=== PATIENT | male | born 1995 | race Caucasian/White ===

== ENCOUNTER → 2023-03-01 13:02 | Outpatient (REF) | payer OTHER, SELFPAY ==
--- NOTE | 2023-03-01 13:08 | CA_ITS ---
Transthoracic Echocardiogram Patient (Last, First, Middle): Art Woodward, Gender: Male Date of : 1995 Age: 28 Procedure Date: 03/01/2023 Procedure Type: Transthoracic Echocardiogram Location: [facility] Height: 193.04 cm Weight: 111.13 kg BSA: 2.42 m2 Heart Rate: 71 bpm BP: 100 / 60 mmHg Client Technologies Analyst: [email or web address] Drew MD: Junior Gilmore MD Combatant Swimmer: Julien Otero MD Symptoms: SYNCOPE COLLAPSE R55 Study Quality: Technically Difficult ECG Rhythm: Sinus Conclusions: - 1. Technically limited study due to body habitus 2. Low normal LV ejection fraction 50-55% with normal filling pattern 3. Limited visualization of cardiac valve with normal cardiac valvular Doppler Findings Left Ventricle The left ventricle was not well visualized. Normal left ventricular cavity size. There is normal left ventricular wall thickness. The left ventricular systolic function is low normal. The visually estimated ejection fraction is between 50-55%. Regional wall motion abnormalities can not be excluded due to suboptimal endocardial definition. Spectral Doppler is indicative of a normal filling pattern. Right Ventricle The right ventricle was not well visualized. Atria The left atrium is normal in size. Interatrial shunt cannot be excluded. The right atrium was not well visualized. Aortic Valve The aortic valve was not well visualized. There is no aortic valve stenosis. There is no aortic valve regurgitation. Mitral Valve Likely normal mitral valve structure and function. There is no mitral valve regurgitation. There is no mitral valve stenosis. Pulmonic Valve The pulmonic valve was not well visualized. Tricuspid Valve The tricuspid valve was not well visualized. Tricuspid regurgitation envelope is inadequate for calculation of right ventricular systolic pressure. Great Vessels All visible segments of the aorta are normal in size. The pulmonary artery was not well visualized. Venous The inferior vena cava is normal in size and collapses greater than 50% with inspiration. Pericardium/Pleural The pericardium was not well visualized. Prior Study Comparison No prior study available for comparison. Recommendations, Care & Conclusions Recommend contrast in the future to improve endocardial definition. Measurements 2D Linear Measurements IVSd: 0.76 0.6-0.9/0.6-1.0 cm LVIDd: 3.91 3.9-5.3/4.2-5.9 cm LVIDd Index: 1.62 2.4-3.2/2.2-3.1 cm/m2 LVIDs: 2.75 2.0-3.6 cm LVPWd: 0.77 0.7-1.1 cm LA Diam: 3.10 2.7-3.8/3.0-4.0 cm LAIDs Index: 1.28 1.5-2.3 cm/m2 LV Mass: 105.54 67-162/88-224 g LV Mass Index: 43.61 43-95/49-115 g/m2 LVOT Diam: 2.50 3.0+(-)1.3 cm 2D Systolic Function EF 4C: 48.90 >55% Mitral Valve MV Pk E: 0.46 MV PK A: 0.36 MV Decel Time: 268.00 E/A: 1.30 E'Lateral: 10.60 E'Medial: 6.31 E/E' Med: 7.30 E/E' Lat: 4.30 PHT: 78.00 MVA PHT: 2.82 Decel Coffey: 1.72 Aortic Valve AoV Pk Eligio: 0.70 AoV Mn Eligio: 0.48 AoV VTI: 0.15 AoV Pk Grad: 2.00 Aov Mn Grad: 1.00 DONOVAN Cont.VTI: 4.71 LVOT LVOT Pk Eligio: 0.59 LVOT Mn Eligio: 0.42 LVOT VTI: 0.14 LVOT Pk Grad: 1.00 LVOT Mn Grad: 1.00 LVOT Diam: 2.50 LVOT Area: 4.91 Diastolic Function MV Pk E: 0.46 MV Pk A: 0.36 E/A: 1.30 E'Medial: 6.31 E/E' Med: 7.30 E' Laterial: 10.60 E/E' Lat: 4.30 Tricuspid Valve RA Press: 3.00 Great Vessels Aorta Sinus of Valsalva: 3.80 2.0-3.5 cm Ao Asc: 3.50 2.1-3.4 cm Ao Arch: 2.80 Pulmonary Valve PV Pk Eligio: 0.61 Peak PV Grad: 1.00 Updated in Other Vendor System with Status of Final Julien Otero MD electronically signed on 03/02/2023 5:57:08 PM with status of Final
== END ==
LOC: HO.CARD 13:02
PROVIDERS: PCP Family Medicine; Visit Provider Internal Medicine Cardiovascular Disease
DX: R55 Syncope and collapse (principal)
CPT/HCPCS: 93306